=== PATIENT | female | born 1985 | race Caucasian/White ===

== ENCOUNTER 2017-05-23 18:04 | Inpatient (IN) | payer BC ==
[2017-05-23] VITALS (7 sets, daily range): BP systolic 133; BP diastolic 76–78; PULSE 74–83; RESP 18; TEMP 98.7
[~2017-05-23] VITALS: Ht 165.1 cm; Wt 95.0 kg
[~2017-05-23 18:04] MED LIST: FERR325T PO; IBUP600 PO; PREN0.01 PO
[2017-05-23 19:15] LABS: AUTOMATED NEUTROPHIL # 8.6 TH/MM3 (1.8-7.7); BASOPHIL % 0.4 % (0.0-2.0); EOSINOPHIL % 0.3 % (0.0-4.0); HEMOGLOBIN 11.5 GM/DL (11.6-15.3); LYMPH % 16.5 % (9.0-44.0); LYMPHOCYTE # 1.8 TH/MM3 (1.0-4.8); MEAN CORPUSCULAR HEMOGLOBIN 30.2 PG (27.0-34.0); MEAN CORPUSCULAR HGB CONC 34.7 % (32.0-36.0); MEAN PLATELET VOLUME 7.5 FL (7.0-11.0); MONOCYTE # 0.7 TH/MM3 (0-0.9); NEUT % 76.8 % (16.0-70.0); PLATELET COUNT 214 TH/MM3 (150-450); RED CELL DISTRIBUTION WIDTH 13.5 % (11.6-17.2); WHITE BLOOD COUNT 11.1 TH/MM3 (4.0-11.0)
[2017-05-23] MEDS ORDERED: DINOPROSTONE 10 MG INSERT-LEAVE FOR 12 HOURS VAGINAL ONE (19:15)
[2017-05-23] MEDS ORDERED: SODIUM CHLORIDE 0.9% FLUSH 10 ML FLUSH IV FLUSH PRN ×2 (19:15)
[2017-05-23 19:21] LABS: BILIRUBIN, URINE NEG (NEG); BLOOD, URINE NEG (NEG); GLUCOSE,URINE NEG (NEG); KETONE, URINE NEG (NEG); NITRITE,URINE NEG (NEG); PH, URINE 6.5 (5.0-8.5); SQUAMOUS EPITHELIAL CELL URINE 2 /hpf (0-5); URINE COLOR LIGHT-YELLOW (YELLW/STRAW); URINE LEUKOCYTE ESTERASE NEG (NEG)
[2017-05-23] MEDS ORDERED: LIDOCAINE HCL 1% 50 ML VIAL INFIL PRN (19:30)
[2017-05-23] MEDS ORDERED: ONDANSETRON HCL 4 MG/2 ML VIAL IV PUSH PRN (19:30)
[2017-05-23] MEDS ORDERED: MINERAL OIL 10 ML VIAL TOPICAL PRN (19:30)
[2017-05-23] MEDS ORDERED: CITRIC ACID-SODIUM CITRATE LIQ 30 ML UDC PO SCH (19:30)
[2017-05-23] MEDS ORDERED: NS 1000 ML IV PRN (19:30)
[2017-05-23] MEDS ORDERED: LIDOCAINE HCL 1% 50 ML VIAL I-DERMAL PRN (19:30)
[2017-05-23] MEDS ORDERED: LACTATED RINGER'S 1000 ML BOLUS IV PRN (19:30)
[2017-05-23] MEDS ORDERED: OXYTOCIN 30 UNITS 500ML PREMIX IV ONE (19:30)
[2017-05-23] MEDS ORDERED: NS 500 ML BOLUS IV PRN (19:30)
[2017-05-24] VITALS (18 sets, daily range): BP systolic 119–142; BP diastolic 57–80; PULSE 67–85; RESP 16–18; TEMP 97.4–98.5
[2017-05-24] MEDS ORDERED: OXYTOCIN 30 UNITS-500ML PREMIX 500 ML IV PRN (07:00)
[2017-05-24] MEDS ORDERED: LACTATED RINGER'S 1000 ML IV SCH (08:00)
--- NOTE | 2017-05-24 09:41 | HHI.HP ---
HPI Chief Complaint iol at term Travel History International Travel<30 Days: No Contact w/Intl Traveler<30Days: No Known Affected Area: No History of Present Illness HPI 32 yo with iup at 40w1d here for elective iol at term. She is s/p cervidil overnight. She has more consistent ctx now. She has no lof, spotting +. Good fm. Weeks Gestation: 40 Para: 1 : 2 History Past Medical History Narrative Medical Varicella non-immune Obstetric History Obstetric History G1 at 37 weeks on 05/02/15; 7lb 2 oz, Male G2 current Past Surgical History Surgical History: No Previous Surgery Family History Family History: Negative Social History Alcohol Use: No Tobacco Use: No Substance Abuse: No Allergies-Medications (Allergen,Severity, Reaction): Coded Allergies: No Known Allergies (Verified Allergy, Unknown, 05/24/17) Uncoded Allergies: AVACADO (Allergy, Severe, 05/02/15) Home Meds Reported Medications Multivit/Min/Fol Ac/Iron/Pren ( Vit ( Plus)) 27 Mg Iron-1 Mg Tab , 1 TAB PO DAILY, TAB 05/02/15 Discontinued Reported Medications Ferrous Sulfate (Iron) 325 Mg Tab, 325 MG PO BID, TAB 05/02/15 Discontinued Scripts Ibuprofen (Motrin 600 Mg Tab) 600 Mg Tab, 600 MG PO Q6H Y for CRAMPING, #30 TAB 0 Refills Prov:Sandra Whitaker MD 05/04/15 Review of Systems General / Constitutional: No: Fever, Weight Gain, Chills, Other Eyes: No: Diploplia, Blurred Vision, Visual changes, Pain, Photophobia HENT: No: Headaches, Vertigo, Lightheadedness Cardiovascular: No: Irregular Rhythm, Chest Pain or Discomfort, Palpitations, Tachycardia, Syncope, Varicosities, Edema, Cyanosis Respiratory: No: Cough, Short of Breath, Other Gastrointestinal: No: Nausea, Vomiting, Diarrhea Genitourinary: No: Decreased Urinary Output, Oliguria Musculoskeletal: No: Limited ROM, Weakness, Cramping, Edema, Pain Skin: No Rash, No Itching, No Dryness, No Lumps, No Change in Pigmentation, No Change in Nails, No Alopecia, No Lesions Neurologic: No: Weakness, Dizziness, Syncope, Focal Abnormalities, Coordination Problem, Headache, Slurred Speech, Seizures Psychiatric: No: Depression, Suicidal Ideations, Homicidal Ideation Endocrine: No: Heat Intolerance, Cold Intolerance, Polydipsia, Polyuria, Other Physical Exam Vital Signs Date Time Temp Pulse Resp B/P (MAP) Pulse Ox O2 Delivery O2 Flow Rate FiO2 05/24/17 09:28 16 05/24/17 09:27 98.1 05/24/17 08:56 69 142/80 (100) 05/24/17 07:50 76 139/76 (97) 05/24/17 04:00 98.5 05/24/17 03:10 71 122/57 (78) 05/24/17 03:09 16 05/23/17 23:58 98.7 05/23/17 23:56 18 05/23/17 23:00 18 05/23/17 22:00 18 05/23/17 20:42 74 133/76 (95) 05/23/17 20:32 18 05/23/17 18:20 83 133/78 (96) Narrative GENERAL: Well-nourished, well-developed patient. SKIN: Warm and dry. HEAD: Normocephalic and atraumatic. EYES: No scleral icterus. No injection or drainage. ENT: No nasal drainage noted. Mucous membranes pink. Airway patent. NECK: Supple, trachea midline. No JVD. CARDIOVASCULAR: Regular rate and rhythm without murmurs, gallops, or rubs. RESPIRATORY: Breath sounds equal bilaterally. No accessory muscle use. ABDOMEN/GI: Abdomen soft, non-tender, bowel sounds present, no rebound, no guarding Gravid [id number] size GENITOURINARY: External Genitalia: intact and normal in appearance BUS glands: [-] Cervix:3/50/-2, AROM clear Presentation ceph Membranes:AROM Uterine Contractions: irreg FHT's: Category: I Baseline: [-] Reactive: [y] Variability mod Decels: [-] EXTREMITIES: No cyanosis or edema. BACK: Nontender without obvious deformity. No CVA tenderness. NEUROLOGICAL: Awake and alert. Motor and sensory grossly within normal limits. Five out of 5 muscle strength in all muscle groups. Normal speech. Caprini VTE Risk Assessment Caprini VTE Risk Assessment: No/Low Risk (score <= 1) Caprini Risk Assessment Model Point Value = 1 Point Value = 2 Point Value = 3 Point Value = 5 Age 41-60 Minor surgery BMI > 25 kg/m2 Swollen legs Varicose veins or History of unexplained or recurrent spontaneous Oral contraceptives or hormone replacement Sepsis (< 1 month) Serious lung disease, including pneumonia (< 1 month) Abnormal pulmonary function Acute myocardial infarction Congestive heart failure (< 1 month) History of inflammatory bowel disease Medical patient at bed rest Age 61-74 Arthroscopic surgery Major open surgery (> 45 min) Laparoscopic surgery (> 45 min) Malignancy Confined to bed (> 72 hours) Immobilizing plaster cast Central venous access Age >= 75 History of VTE Family history of VTE Factor V Leiden Prothrombin [id number] Lupus anticoagulant Anticardiolipin antibodies Elevated serum homocysteine Heparin-induced thrombocytopenia Other congenital or acquired thrombophilia Stroke (< 1 month) Elective arthroplasty Hip, pelvis, or leg fracture Acute spinal cord injury (< 1 month) Prophylaxis Regimen Total Risk Factor Score Risk Level Prophylaxis Regimen 0-1 Low Early ambulation 2 Moderate Order ONE of the following: *Sequential Compression Device (SCD) *Heparin 5000 units SQ BID 3-4 Higher Order ONE of the following medications: *Heparin 5000 units SQ TID *Enoxaparin/Lovenox 40 mg SQ daily (WT < 150 kg, CrCl > 30 mL/min) *Enoxaparin/Lovenox 30 mg SQ daily (WT < 150 kg, CrCl > 10-29 mL/min) *Enoxaparin/Lovenox 30 mg SQ BID (WT < 150 kg, CrCl > 30 mL/min) AND/OR *Sequential Compression Device (SCD) 5 or more Highest Order ONE of the following medications: *Heparin 5000 units SQ TID (Preferred with Epidurals) *Enoxaparin/Lovenox 40 mg SQ daily (WT < 150 kg, CrCl > 30 mL/min) *Enoxaparin/Lovenox 30 mg SQ daily (WT < 150 kg, CrCl > 10-29 mL/min) *Enoxaparin/Lovenox 30 mg SQ BID (WT < 150 kg, CrCl > 30 mL/min) AND *Sequential Compression Device (SCD) Data Data Vital Signs Reviewed: Yes Orders Orders Admit To Inpatient (05/23/17 ) Code Status (05/23/17 18:54) Vital Signs (Adult) .Per protocol (05/23/17 18:54) Activity Oob Ad Dali (05/23/17 18:54) Heart (05/23/17 18:54) Amnioinfusion (05/23/17 18:54) Urinary Catheter Management .ONCE (05/23/17 18:54) Complete Blood Count With Diff (05/23/17 18:54) Hold Clot (05/23/17 18:54) Abo/Rh Blood Type (05/23/17 18:54) Urinalysis - C+S If Indicated (05/23/17 18:54) Ob/Psych Drug Screen, Urine (05/23/17 18:54) Resp Oxygen Non Rebreathe Mask (05/23/17 ) ^ Epidural / Intrathecal Infus (05/23/17 18:54) Specimen To Be Collected PRN (05/23/17 18:54) Specimen To Be Collected PRN (05/23/17 18:54) Diet Regular Basic (05/23/17 Dinner) ^ Labor Induction (05/23/17 18:56) ^ Vaginal Insert (05/23/17 18:56) ^ Vaginal Lavage (05/23/17 18:56) Heart (05/23/17 18:56) Dinoprostone Vag Insert (Cervidil Vag In (05/23/17 19:15) Sodium Chloride 0.9% Flush (Ns Flush) (05/23/17 19:15) Sodium Chloride 0.9% Flush (Ns Flush) (05/23/17 19:15) Lactated Ringer's 1000 Ml Inj (Lr 1000 M (05/24/17 08:00) Lactated Ringer's 1000 Ml Inj (Lr 1000 M (05/23/17 19:30) Sodium Chlorid 0.9% 500 Ml Inj (Ns 500 M (05/23/17 19:30) Sodium Chlor 0.9% 1000 Ml Inj (Ns 1000 M (05/23/17 19:30) Lidocaine 1% Inj (50 Ml) (Xylocaine 1% I (05/23/17 19:30) Citric Acid-Sodium Citrate Liq (Bicitra (05/23/17 19:30) Ondansetron Inj (Zofran Inj) (05/23/17 19:30) Fentanyl Inj (Fentanyl Inj) (05/23/17 19:30) Fentanyl Inj (Fentanyl Inj) (05/23/17 19:30) Oxytocin 30 Units-500ml Premix (Pitocin (05/23/17 19:30) Lidocaine 1% Inj (50 Ml) (Xylocaine 1% I (05/23/17 19:30) Light Mineral Oil (Muri-Lube Oil) (05/23/17 19:30) ^ Non Stress Test (05/24/17 06:55) Response To Medication .Post New Med Administration, Reaction (05/24/17 06:55) ^ Discontinue Medication (05/24/17 06:55) Oxytocin 30 Units-500ml Premix (Pitocin (05/24/17 07:00) Group B Strep: Negative Labs Laboratory Tests Test 05/23/17 18:15 05/23/17 18:30 Urine Color LIGHT-YELLOW Urine Turbidity CLEAR Urine pH 6.5 Urine Specific [place] 1.007 Urine Protein NEG Urine Glucose (UA) NEG Urine Ketones NEG Urine Occult Blood NEG Urine Nitrite NEG Urine Bilirubin NEG Urine Urobilinogen LESS THAN 2.0 Urine Leukocyte Esterase NEG Urine RBC LESS THAN 1 Urine WBC 1 Urine Squamous Epithelial Cells 2 Microscopic Urinalysis Comment CULT NOT INDICATED Urine Opiates Screen NEG Urine Barbiturates Screen NEG Urine Amphetamines Screen NEG Urine Benzodiazepines Screen NEG Urine Cocaine Screen NEG Urine Cannabinoids Screen NEG White Blood Count 11.1 Red Blood Count 3.80 Hemoglobin 11.5 Hematocrit 33.0 Mean Corpuscular Volume 87.0 Mean Corpuscular Hemoglobin 30.2 Mean Corpuscular Hemoglobin Concent 34.7 Red Cell Distribution Width 13.5 Platelet Count 214 Mean Platelet Volume 7.5 Neutrophils (%) (Auto) 76.8 Lymphocytes (%) (Auto) 16.5 Monocytes (%) (Auto) 6.0 Eosinophils (%) (Auto) 0.3 Basophils (%) (Auto) 0.4 Neutrophils # (Auto) 8.6 Lymphocytes # (Auto) 1.8 Monocytes # (Auto) 0.7 Eosinophils # (Auto) 0.0 Basophils # (Auto) 0.0 CBC Comment DIFF FINAL Differential Comment Assessment/Plan Problem List: (1) Labor and delivery indication for care or intervention ICD Codes: O75.9 - Complication of labor and delivery, unspecified Assessment and Plan 32 yo with iup at 40w1d here for iol 1) IOL- s/p cervidil, on pitocin now. Arom clear 2) GBS negative 3) FEtus cephalic, 66% EFW at 34 w5d (5 lb 11 oz) Discharge Planning home ppd 2 Maria A Gomez MD May 24, 2017 09:41
--- NOTE | 2017-05-24 12:57 | PD.OB.DELI ---
Weeks gestation: 40 Pt started active labor?: Yes Medical induction of labor?: No Artificial rupture of membrane: Yes Anesthesia: None Episiotomy: None Vaginal Delivery: Normal Presentation: Occiput anterior Nuchal Cord: x1 (tight double clamped and cut) : Female Delivery date: May 24, 2017 Delivery time: 12:40 One Minute : 7 Five Minute : 9 Weight: p Placenta: Spontaneous delivery Laceration: No lacerations Estimated blood loss: 200ml Additional Information precipitous delivery, baby delivered by Dr Downs. Placenta delivered by Dr. Gomez. Maria A Gomez MD May 24, 2017 12:57
[2017-05-24] MEDS ORDERED: WITCH HAZEL 50%/GLYCERIN 12.5% 40 PAD JAR TOPICAL PRN (13:00)
[2017-05-24] MEDS ORDERED: ACETAMINOPHEN 325 MG TAB PO PRN (13:00)
[2017-05-24] MEDS ORDERED: ONDANSETRON ODT 4 MG TAB PO PRN (13:00)
[2017-05-24] MEDS ORDERED: SODIUM CHLORIDE 0.9% FLUSH 10 ML FLUSH IV FLUSH PRN (13:00)
[2017-05-24] MEDS ORDERED: IBUPROFEN 800 MG TAB PO PRN (13:00)
[2017-05-24] MEDS ORDERED: BENZOCAINE 20% TOPICAL SPRAY 60 ML CAN TOPICAL PRN (13:00)
[2017-05-24] MEDS ORDERED: ZOLPIDEM TARTRATE 5 MG TAB PO PRN (13:00)
[2017-05-24] MEDS ORDERED: ALUMINUM/MAGNESIUM/SIMETH 30 ML CUP PO PRN (13:00)
[2017-05-24] MEDS ORDERED: OXYTOCIN 30 UNITS-500ML PREMIX 500 ML IV SCH (13:00)
[2017-05-24] MEDS ORDERED: MEASLES, MUMPS, RUBELLA VACCINE 0.5 ML VIAL SQ ONE (16:00)
[2017-05-24] MEDS ORDERED: DIPHTH/TETANUS/ACEL PERTUSSIS (BOOSTER) 0.5 ML VIAL/PFS IM ONE (16:00)
--- NOTE | 2017-05-24 19:44 | HHI.DCPOC ---
Discharge Care Plan Diagnosis: (1) (spontaneous vaginal delivery) Your Health Problems Are: Vaginal delivery Report Symptoms to Your Doctor -Temperature above 100.5 degrees -Redness, of incision or excessive or foul smelling drainage -Unusual pain or calf pain -Increased vaginal bleeding -Painful or difficulty urinating -Feelings of extreme sadness or anxiety after 2 weeks Goals to Promote Your Health * To prevent worsening of your condition and complications * To maintain your health at the optimal level Directions to Meet Your Goals Take your medications as prescribed Follow your dietary instruction Follow activity as directed Ensure plenty of rest for recovery Drink fluids for hydration Keep your appointments as scheduled Take your immunizations and boosters as scheduled If your symptoms worsen call your PCP, if no PCP go to Urgent Care Center or Emergency Room Smoking is Dangerous to Your Health. Avoid second hand smoke Call the 24-hour crisis hotline for domestic abuse at Maria A Gomez MD May 24, 2017 19:44
[2017-05-24] MEDS ORDERED: IBUP1TAB7 PO (19:45)
[2017-05-24] MEDS: DOCUSATE SODIUM 50 MG/SENNA 8.6 MG TAB PO PRN (21:56)
--- NOTE | 2017-05-25 07:52 | HHI.OB ---
Subjective Post Day: 1 Remarks s/p full term of healthy female Objective Vitals/I&O Vital Signs Date Time Temp Pulse Resp B/P (MAP) Pulse Ox O2 Delivery O2 Flow Rate FiO2 05/24/17 19:50 98.4 05/24/17 19:50 82 16 124/60 (81) 05/24/17 15:00 98.2 68 16 125/69 (87) 05/24/17 14:05 16 05/24/17 14:00 67 132/77 (95) 05/24/17 13:50 16 05/24/17 13:46 76 122/67 (85) 05/24/17 13:20 97.6 05/24/17 13:01 85 121/75 (90) 05/24/17 12:55 79 119/80 (93) 05/24/17 12:54 18 05/24/17 11:12 97.4 05/24/17 09:28 16 05/24/17 09:28 82 140/79 (99) 05/24/17 09:27 98.1 05/24/17 08:56 69 142/80 (100) 05/24/17 07:50 76 139/76 (97) Objective Remarks GENERAL: Well-nourished, well-developed patient. . CARDIOVASCULAR: Regular rate and rhythm without murmurs, gallops, or rubs. RESPIRATORY: Breath sounds equal bilaterally. No accessory muscle use. ABDOMEN/GI: Abdomen soft, non-tender. Fundus: Firm, non-tender at umbilicus. GENITOURINARY: Light bleeding. EXTREMITIES: No cyanosis or edema, non-tender, without signs of DVT. Medications and IVs Current Medications Medications (Trade) Dose Ordered Sig/Molly Route Start Time Stop Time Status Last Admin (NS Flush) 2 ml BID IV FLUSH 05/24/17 21:00 (NS Flush) 2 ml UNSCH PRN IV FLUSH 05/24/17 13:00 (Tylenol) 650 mg Q4H PRN PO 05/24/17 13:00 (Motrin) 800 mg Q8H PRN PO 05/24/17 13:00 05/24/17 21:56 (Americaine 20% Top Spr) 1 spray Q4H PRN TOPICAL 05/24/17 13:00 05/24/17 19:49 (Tucks Pads) 1 applic QID PRN TOPICAL 05/24/17 13:00 05/24/17 19:49 (Rosario-Colace) 2 tab Q12H PRN PO 05/24/17 13:00 05/24/17 21:56 (Ambien) 5 mg HS PRN PO 05/24/17 13:00 (Mag-Al Plus Susp Liq) 15 ml Q8H PRN PO 05/24/17 13:00 (Zofran Odt) 4 mg Q6H PRN PO 05/24/17 13:00 Assessment/Plan Problem List: (1) (spontaneous vaginal delivery) ICD Codes: O80 - Encounter for full-term uncomplicated delivery Status: Acute (2) Labor and delivery indication for care or intervention ICD Codes: O75.9 - Complication of labor and delivery, unspecified Status: Acute Assessment and Plan 32 yo s/p 40w1d doing well, routine care, pt desires d/c to home today if infant cleared continue supportive care Discharge Planning routine Toshia Molina MD May 25, 2017 07:52
[2017-05-25 08:00] VITALS: BP 118/74; PULSE 78; RESP 18; TEMP 97.7
[2017-05-25] MEDS: SODIUM CHLORIDE 0.9% FLUSH 10 ML FLUSH IV FLUSH SCH ×2 (09:00→19:38)
[2017-05-25] MEDS: DOCUSATE SODIUM 50 MG/SENNA 8.6 MG TAB PO PRN (09:11)
[2017-05-25 20:00] VITALS: BP 148/83; PULSE 83; RESP 18; TEMP 97.9
[2017-05-26 08:40] VITALS: BP 130/72; PULSE 80; RESP 18; TEMP 97.9
--- NOTE | 2017-05-26 10:11 | HHI.OB ---
Subjective Post Day: 2 Remarks PPD#2 ; Stable, cleared for discharge home Objective Vitals/I&O Vital Signs Date Time Temp Pulse Resp B/P (MAP) Pulse Ox O2 Delivery O2 Flow Rate FiO2 05/26/17 08:40 97.9 80 18 130/72 (91) 05/25/17 20:00 97.9 83 18 148/83 (104) Objective Remarks GENERAL: Well-nourished, well-developed patient. . CARDIOVASCULAR: Regular rate and rhythm without murmurs, gallops, or rubs. RESPIRATORY: Breath sounds equal bilaterally. No accessory muscle use. ABDOMEN/GI: Abdomen soft, non-tender. Fundus: Firm, non-tender at umbilicus. GENITOURINARY: Light bleeding. EXTREMITIES: No cyanosis or edema, non-tender, without signs of DVT. Medications and IVs Current Medications Medications (Trade) Dose Ordered Sig/Molly Route Start Time Stop Time Status Last Admin (NS Flush) 2 ml BID IV FLUSH 05/24/17 21:00 (NS Flush) 2 ml UNSCH PRN IV FLUSH 05/24/17 13:00 (Tylenol) 650 mg Q4H PRN PO 05/24/17 13:00 05/25/17 20:29 (Motrin) 800 mg Q8H PRN PO 05/24/17 13:00 05/24/17 21:56 (Americaine 20% Top Spr) 1 spray Q4H PRN TOPICAL 05/24/17 13:00 05/24/17 19:49 (Tucks Pads) 1 applic QID PRN TOPICAL 05/24/17 13:00 05/24/17 19:49 (Rosario-Colace) 2 tab Q12H PRN PO 05/24/17 13:00 05/25/17 09:11 (Ambien) 5 mg HS PRN PO 05/24/17 13:00 (Mag-Al Plus Susp Liq) 15 ml Q8H PRN PO 05/24/17 13:00 (Zofran Odt) 4 mg Q6H PRN PO 05/24/17 13:00 Assessment/Plan Problem List: (1) (spontaneous vaginal delivery) ICD Codes: O80 - Encounter for full-term uncomplicated delivery Status: Acute (2) Labor and delivery indication for care or intervention ICD Codes: O75.9 - Complication of labor and delivery, unspecified Status: Acute Assessment and Plan 32 yo s/p 40w1d PPD#2, discharge planning for today; RTO in 6 weeks Discharge Planning routine Attending Attestation seen by Nigel Lin MD May 26, 2017 10:11
== END 2017-05-26 10:09 | disposition home or self-care (01) | DRG 775 ==
LOC: H2EB 18:04 → H1EA 05-24 14:42
PROVIDERS: ADMIT Obstetrics & Gynecology; ATTEND Obstetrics & Gynecology
PROC: 3E033VJ Introduction of Other Hormone into Peripheral Vein, Percutaneous Approach (ICD-10-PCS; 2017-05-23)
PROC: 10907ZC Drainage of Amniotic Fluid, Therapeutic from Products of Conception, Via Natural or Artificial Opening (ICD-10-PCS; 2017-05-23)
PROC: 10E0XZZ Delivery of Products of Conception, External Approach (ICD-10-PCS; principal; 2017-05-24)
DX: O69.1XX0 Labor and delivery complicated by cord around neck, with compression, not applicable or unspecified (principal); O62.3 Precipitate labor; Z37.0 Single live birth; Z3A.40 40 weeks gestation of pregnancy
CPT/HCPCS: 59025; 80307; 81001; 85025; 86900; 86901; J2590; J3010; J7120